=== PATIENT | female | born 1965 | race Two or more races ===

== ENCOUNTER → 2024-10-02 | Outpatient (CLI) | payer MEDICAID, SELFPAY ==
--- NOTE | 2024-10-02 12:00 | XR_ITS ---
Examination: MRI cervical spine without intravenous contrast Date and time of exam: October 02, 2024 1202 hours INDICATIONS: Neck pain radiating to the arms 10 years INDICATIONS: Axial MRI images cervical spine FINDINGS: Adequate alignment cervical vertebral bodies No cervical fracture Moderate to advanced disc narrowing C5-C6, C6-C7 Diffuse cervical disc desiccation No localized enlargement cervical cord C2-C3 no disc protrusion C3-C4 moderate to advanced spinal stenosis, 5 mm central disc protrusion impinging upon the cervical cord C4-C5 moderate to advanced spinal stenosis, 4 mm central disc protrusion indenting the ventral margin cervical cord C5-C6 2 mm central disc protrusion C6-C7 moderate left neural foraminal stenosis C7-T1 moderate right neural foraminal stenosis IMPRESSION: Moderate to advanced cervical spinal stenosis with impingement upon the cervical cord at the C3-C4, C4-C5 levels
== END | disposition home or self-care (01) ==
PROVIDERS: PCP Physician Assistant Medical; Referring Provider Physician Assistant Medical; Visit Provider Physician Assistant Medical
DX: M48.02 Spinal stenosis, cervical region (principal)
CPT/HCPCS: 72141